=== PATIENT | female | born 1950 | race Two or more races ===

== ENCOUNTER → 2021-05-24 | Emergency (ER) | payer OTHER ==
[~2021-05-24] VITALS: Ht 165.1 cm; Wt 74.4 kg
[~2021-05-24] MED LIST: AMLODIPINE-OLM1 EAC2; BENADRYL25 MG PO; GLUMETZA500 MG PO; ZESTRIL20 MG PO
== END | disposition home or self-care (01) ==
LOC: ER 10:42
DX: B02.9 Zoster without complications (principal)

== ENCOUNTER 2025-07-07 09:21 | Outpatient (CLI) | payer OTHER | END 2025-07-07 09:22 | disposition home or self-care (01) | LOC: SONOGRAMA 09:21 | PROVIDERS: ATTEND Pathology Anatomic Pathology & Clinical Pathology | DX: D34 Benign neoplasm of thyroid gland (principal); D44.0 Neoplasm of uncertain behavior of thyroid gland; E07.89 Other specified disorders of thyroid; E04.2 Nontoxic multinodular goiter ==